=== PATIENT | female | born 1940 | race African-American/Black ===

== ENCOUNTER 2018-12-03 23:04 | Inpatient (IN) ==
[2018-12-04 01:29] LABS: Basophils % 0.3 % (0.0-0.8); Eosinophils % 0.2 % (0.00-10.9); Hematocrit 26.2 VOL% (35.7-47.0); Hemoglobin 8.4 GM/DL (12.0-16.0); Immature Granulocytes % 1.4 %; Immature Granulocytes Absolute 0.17 #; Lymphocytes # 0.9 10*3/uL (1.4-4.0); Lymphocytes % 7.2 % (21.3-54.2); Mean Corpuscular HGB Conc 32.1 GM/DL (32-36); Mean Corpuscular Volume 83.7 FL (87-102); Mean Platelet Volume 10.3 FL (9.6-12.0); Monocytes % 6.9 % (1.7-12.7); Platelet Count 276 T/CUMM (130-400); Red Blood Count 3.13 MC/CUMM (3.8-5.5); Red Cell Distribution Width 14.3 % (9.3-17.3); White Blood Count 12.3 T/CUMM (4-12)
[2018-12-04 01:53] LABS: Alanine Aminotransferase < 9 U/L (13-56); Albumin 2.9 G/DL (3.4-5.0); Alkaline Phosphatase 91 U/L (45-117); Aspartate Amino Transferase 17 U/L (0-37); Blood Urea Nitrogen 104 MG/DL (7-18); Calcium 6.3 MG/DL (8.5-10.1); Estimated Glom Filtration Rate 4 ML/MIN; Glucose 83 MG/DL (74-106); Osmolality,Calculated 282.5 MOS/KG (273-304); Total Protein 7.2 G/DL (6.4-8.3); Troponin I < 0.015 NG/ML (0.00-0.045)
[2018-12-04 01:58] LABS: ABG Base Excess -6.6 MMOL/L (-2.5-2.5); ABG Oxygen Saturation 99.2 % (95-100); ABG PCO2 30.3 MM HG (35-48); ABG PH 7.376 (7.35-7.45); ABG TCO2 16.6 MMOL/L (23-27)
[2018-12-04] MEDS ORDERED: SODIUM CHLORIDE 0.9% 500 ML IV ONE ×2 (02:03→09:28)
[2018-12-04] MEDS ORDERED: MAGNESIUM SULF RIDER 2 GM in PREMIX 1 EACH IV PRN (02:04)
[2018-12-04] MEDS ORDERED: MAGNESIUM SULF RIDER 4 GM in PREMIX 1 EACH IV PRN (02:04)
[2018-12-04] MEDS ORDERED: SODIUM CHLORIDE 0.9% 1,000 ML IV SCH (02:30)
[2018-12-04] MEDS ORDERED: HEPARIN 5,000 UNIT/1 ML VIAL SUBCUT SCH (03:00)
[2018-12-04 03:49] LABS: Apearance,Urine CLOUDY (Clear); Bilirubin,Urine Negative (Negative); Blood, Urine Moderate mg/dL (Negative); Glucose,Urine (UA) Negative (Negative); Hyaline Casts,Urine 7 /LPF (0-3); Ketones,Urine Negative (Negative); Nitrite,Urine Negative (Negative); Protein,Urine Negative; RBC,Urine 11 /HPF (0-4); Squamous Epithelial Cell,Urine Few /HPF (0-10); Urine Color Yellow (Yellow); Urine Specific Gravity 1.013 (1.001-1.035); Urine Urobilinogen < 2.0 EU/DL (0.2-1.0); WBC,Urine 25 /HPF (0-6)
[2018-12-04 05:18] LABS: Protein/Creatinine Ratio,Urine 0.7 RATIO
[2018-12-04] MEDS ORDERED: DOPamine 800 MG/250 ML PREMIX IV PRN (06:17)
[2018-12-04 08:59] LABS: Albumin 2.6 G/DL (3.4-5.0); Bilirubin,Total 0.6 MG/DL (0.2-1.0); Calcium 6.1 MG/DL (8.5-10.1); Osmolality,Calculated 290.9 MOS/KG (273-304); Risk Ratio 3.9; Thyroid Stimulating Hormone 0.264 uIU/ml (0.358-3.74); Total Protein 6.4 G/DL (6.4-8.3); VLDL CHOLESTEROL 22.6 MG/DL
[2018-12-04] MEDS ORDERED: FAMOTIDINE 20 MG/2 ML VIAL IV SCH (09:00)
[2018-12-04 09:51] LABS: Hemoglobin A1 (Alkaline) 97.7 % (96.5-98.5); Hemoglobin A2 (Alkaline) 2.3 % (1.5-3.5)
[2018-12-04 09:58] LABS: Folate 8.1 NG/ML (5.4-24.0); Vitamin B12 1055 PG/ML (211-911)
[2018-12-04] MEDS: CARBIDOPA/LEVODOPA 25-100 MG TABLET PO SCH ×3 (11:03→20:11)
[2018-12-04] MEDS ORDERED: ETOMIDATE 20 MG/10 ML VIAL IV ONE (12:16)
[2018-12-04] MEDS ORDERED: LIDOCAINE 100 MG/5 ML SYRINGE ONE (12:16)
[2018-12-04] MEDS: cefTRIAXone 1,000 MG in SYRINGE 1 EACH IV SCH (16:46)
[2018-12-04] MEDS ORDERED: PANTOPRAZOLE 40 MG TABLET PO SCH (18:30)
[2018-12-04] MEDS: SODIUM BICARB INJ 50 MEQ in SODIUM CHLORIDE 0.45% 1,000 ML IV SCH (19:05)
[2018-12-04] MEDS: DEXTROSE 5% 1,000 ML IV SCH (19:26)
[2018-12-04] MEDS: PANTOPRAZOLE 40 MG TABLET PO SCH (20:11)
[2018-12-05 04:18] LABS: Basophils % 0.1 % (0.0-0.8); Eosinophils # 0.1 10*3/uL (0.0-0.87); Eosinophils % 1.8 % (0.00-10.9); Hematocrit 23.4 VOL% (35.7-47.0); Hemoglobin 7.6 GM/DL (12.0-16.0); Immature Granulocytes % 0.9 %; Immature Granulocytes Absolute 0.07 #; Lymphocytes # 0.6 10*3/uL (1.4-4.0); Lymphocytes % 8.7 % (21.3-54.2); Mean Corpuscular HGB Conc 32.5 GM/DL (32-36); Mean Platelet Volume 10.5 FL (9.6-12.0); Monocytes % 7.7 % (1.7-12.7); Neutrophils % 80.8 % (38.7-73.9); Platelet Count 256 T/CUMM (130-400); Red Blood Count 2.82 MC/CUMM (3.8-5.5); Red Cell Distribution Width 14.1 % (9.3-17.3); White Blood Count 7.4 T/CUMM (4-12)
[2018-12-05 04:26] LABS: Calcium 6.3 MG/DL (8.5-10.1); Osmolality,Calculated 293.2 MOS/KG (273-304)
[2018-12-05] MEDS: SODIUM BICARB INJ 50 MEQ in SODIUM CHLORIDE 0.45% 1,000 ML IV SCH ×3 (05:40→22:05)
[2018-12-05 06:58] LABS: Basophils % 0.1 % (0.0-0.8); Eosinophils # 0.1 10*3/uL (0.0-0.87); Eosinophils % 1.8 % (0.00-10.9); Hematocrit 23.4 VOL% (35.7-47.0); Hemoglobin 7.6 GM/DL (12.0-16.0); Immature Granulocytes % 0.9 %; Immature Granulocytes Absolute 0.07 #; Lymphocytes # 0.6 10*3/uL (1.4-4.0); Lymphocytes % 8.7 % (21.3-54.2); Mean Corpuscular HGB Conc 32.5 GM/DL (32-36); Mean Platelet Volume 10.5 FL (9.6-12.0); Monocytes % 7.7 % (1.7-12.7); Neutrophils % 80.8 % (38.7-73.9); Platelet Count 256 T/CUMM (130-400); Red Blood Count 2.82 MC/CUMM (3.8-5.5); Red Cell Distribution Width 14.1 % (9.3-17.3); White Blood Count 7.4 T/CUMM (4-12)
[2018-12-05 07:58] LABS: Sedimentation Rate-Westergren 99 MM/HR (0-30)
[2018-12-05] MEDS: PANTOPRAZOLE 40 MG TABLET PO SCH ×2 (08:30→20:29)
[2018-12-05] MEDS: CARBIDOPA/LEVODOPA 25-100 MG TABLET PO SCH ×3 (08:30→20:29)
[2018-12-05] MEDS ORDERED: FUROSEMIDE 20 MG/2 ML VIAL IV PRN (08:32)
[2018-12-05] MEDS ORDERED: SODIUM CHLORIDE 0.9% 1,000 ML IV PRN (08:32)
[2018-12-05] MEDS: DEXTROSE 5% 1,000 ML IV SCH (16:28)
[2018-12-05] MEDS: cefTRIAXone 1,000 MG in SYRINGE 1 EACH IV SCH (17:02)
[2018-12-05] MEDS ORDERED: FUROSEMIDE 20 MG/2 ML VIAL IV ONE (18:50)
[2018-12-06 04:27] LABS: Basophils % 0.1 % (0.0-0.8); Eosinophils # 0.3 10*3/uL (0.0-0.87); Eosinophils % 3.4 % (0.00-10.9); Hematocrit 28.2 VOL% (35.7-47.0); Hemoglobin 9.2 GM/DL (12.0-16.0); Immature Granulocytes % 0.9 %; Immature Granulocytes Absolute 0.07 #; Lymphocytes # 0.7 10*3/uL (1.4-4.0); Lymphocytes % 8.4 % (21.3-54.2); Mean Corpuscular HGB Conc 32.6 GM/DL (32-36); Mean Corpuscular Volume 83.7 FL (87-102); Mean Platelet Volume 10.3 FL (9.6-12.0); Monocytes % 7.2 % (1.7-12.7); Platelet Count 228 T/CUMM (130-400); Red Blood Count 3.37 MC/CUMM (3.8-5.5); Red Cell Distribution Width 14.4 % (9.3-17.3); White Blood Count 7.9 T/CUMM (4-12)
[2018-12-06 04:47] LABS: Calcium 7.2 MG/DL (8.5-10.1); Osmolality,Calculated 302.3 MOS/KG (273-304)
[2018-12-06] MEDS: SODIUM BICARB INJ 50 MEQ in SODIUM CHLORIDE 0.45% 1,000 ML IV SCH ×2 (08:35→20:37)
[2018-12-06] MEDS ORDERED: POLYETHYLENE GLYCOL POWDER 17 GM PACK PO SCH (09:00)
[2018-12-06] MEDS: CARBIDOPA/LEVODOPA 25-100 MG TABLET PO SCH ×3 (09:35→20:33)
[2018-12-06] MEDS: PANTOPRAZOLE 40 MG TABLET PO SCH ×2 (09:35→20:34)
[2018-12-06] MEDS: ONDANSETRON 4 MG/2 ML VIAL IV PRN (12:46)
[2018-12-06] MEDS: DOCUSATE SODIUM 100 MG CAPSULE PO SCH ×2 (12:54→20:34)
[2018-12-06] MEDS: HEPARIN 5,000 UNIT/1 ML VIAL SUBCUT SCH (15:53)
[2018-12-06] MEDS: cefTRIAXone 1,000 MG in SYRINGE 1 EACH IV SCH (15:53)
[2018-12-06] MEDS: POLYETHYLENE GLYCOL POWDER 17 GM PACK PO SCH (20:33)
[2018-12-06] MEDS: LACTULOSE 20 GM/30 ML UDCUP PO SCH (20:33)
[2018-12-06] MEDS: CYPROHEPTADINE 4 MG TABLET PO SCH (20:33)
[2018-12-06] MEDS: levETIRAcetam 500 MG TABLET PO SCH (20:34)
[2018-12-07] MEDS: HEPARIN 5,000 UNIT/1 ML VIAL SUBCUT SCH ×4 (01:13→23:53)
[2018-12-07 05:31] LABS: Basophils % 0.1 % (0.0-0.8); Eosinophils # 0.3 10*3/uL (0.0-0.87); Eosinophils % 4.7 % (0.00-10.9); Hematocrit 27.9 VOL% (35.7-47.0); Hemoglobin 9.2 GM/DL (12.0-16.0); Immature Granulocytes % 1.2 %; Immature Granulocytes Absolute 0.08 #; Lymphocytes # 1.3 10*3/uL (1.4-4.0); Lymphocytes % 18.7 % (21.3-54.2); Mean Platelet Volume 9.9 FL (9.6-12.0); Monocytes % 7.3 % (1.7-12.7); Platelet Count 241 T/CUMM (130-400); Red Blood Count 3.36 MC/CUMM (3.8-5.5); Red Cell Distribution Width 14.5 % (9.3-17.3); White Blood Count 6.8 T/CUMM (4-12)
[2018-12-07 05:44] LABS: Calcium 7.4 MG/DL (8.5-10.1); Osmolality,Calculated 300.8 MOS/KG (273-304)
[2018-12-07] MEDS: SODIUM BICARB INJ 50 MEQ in SODIUM CHLORIDE 0.45% 1,000 ML IV SCH ×2 (08:21→17:12)
[2018-12-07] MEDS: LACTULOSE 20 GM/30 ML UDCUP PO SCH ×2 (09:28→21:12)
[2018-12-07] MEDS: POLYETHYLENE GLYCOL POWDER 17 GM PACK PO SCH ×2 (09:28→21:09)
[2018-12-07] MEDS: levETIRAcetam 500 MG TABLET PO SCH ×2 (09:32→21:24)
[2018-12-07] MEDS: DOCUSATE SODIUM 100 MG CAPSULE PO SCH ×2 (09:33→21:10)
[2018-12-07] MEDS: CARBIDOPA/LEVODOPA 25-100 MG TABLET PO SCH ×3 (09:33→21:12)
[2018-12-07] MEDS: PANTOPRAZOLE 40 MG TABLET PO SCH ×2 (09:33→21:10)
[2018-12-07] MEDS: CYPROHEPTADINE 4 MG TABLET PO SCH ×3 (09:35→21:10)
[2018-12-07] MEDS: carvediloL 3.125 MG TABLET PO SCH ×2 (12:10→21:10)
[2018-12-07] MEDS: cefTRIAXone 1,000 MG in SYRINGE 1 EACH IV SCH (14:37)
[2018-12-08] MEDS: SODIUM BICARB INJ 50 MEQ in SODIUM CHLORIDE 0.45% 1,000 ML IV SCH ×2 (03:58→14:34)
[2018-12-08 05:46] LABS: Basophils % 0.3 % (0.0-0.8); Eosinophils # 0.4 10*3/uL (0.0-0.87); Eosinophils % 5.4 % (0.00-10.9); Hemoglobin 7.9 GM/DL (12.0-16.0); Immature Granulocytes % 0.9 %; Immature Granulocytes Absolute 0.06 #; Lymphocytes # 1.2 10*3/uL (1.4-4.0); Lymphocytes % 17.6 % (21.3-54.2); Mean Corpuscular HGB Conc 31.6 GM/DL (32-36); Mean Corpuscular Volume 87.1 FL (87-102); Monocytes % 7.5 % (1.7-12.7); Neutrophils % 68.3 % (38.7-73.9); Platelet Count 216 T/CUMM (130-400); Red Blood Count 2.87 MC/CUMM (3.8-5.5); Red Cell Distribution Width 14.6 % (9.3-17.3); White Blood Count 6.5 T/CUMM (4-12)
[2018-12-08 06:06] LABS: Calcium 7.3 MG/DL (8.5-10.1); Osmolality,Calculated 293.7 MOS/KG (273-304)
[2018-12-08] MEDS: LACTULOSE 20 GM/30 ML UDCUP PO SCH ×2 (09:05→21:05)
[2018-12-08] MEDS: HEPARIN 5,000 UNIT/1 ML VIAL SUBCUT SCH ×2 (09:05→15:25)
[2018-12-08] MEDS: POLYETHYLENE GLYCOL POWDER 17 GM PACK PO SCH ×2 (09:05→21:10)
[2018-12-08] MEDS: levETIRAcetam 500 MG TABLET PO SCH ×2 (09:05→21:17)
[2018-12-08] MEDS: CARBIDOPA/LEVODOPA 25-100 MG TABLET PO SCH ×3 (09:05→21:10)
[2018-12-08] MEDS: CYPROHEPTADINE 4 MG TABLET PO SCH ×3 (09:06→21:10)
[2018-12-08] MEDS: PANTOPRAZOLE 40 MG TABLET PO SCH (09:06)
[2018-12-08] MEDS: DOCUSATE SODIUM 100 MG CAPSULE PO SCH ×2 (09:06→21:10)
[2018-12-08] MEDS: carvediloL 3.125 MG TABLET PO SCH ×2 (09:07→21:10)
[2018-12-08] MEDS ORDERED: POTASSIUM CHLORIDE 20 MEQ TABLET PO ONE (10:04)
[2018-12-08] MEDS: cefTRIAXone 1,000 MG in SYRINGE 1 EACH IV SCH (14:28)
[2018-12-08] MEDS ORDERED: SODIUM CHLORIDE 0.9% 1,000 ML IV PRN (15:00)
[2018-12-08] MEDS: ONDANSETRON 4 MG/2 ML VIAL IV PRN (21:17)
[2018-12-09] MEDS: PANTOPRAZOLE 40 MG TABLET PO SCH ×2 (00:26→09:21)
[2018-12-09] MEDS: HEPARIN 5,000 UNIT/1 ML VIAL SUBCUT SCH ×2 (00:26→09:20)
[2018-12-09 04:41] LABS: Basophils % 0.3 % (0.0-0.8); Eosinophils # 0.4 10*3/uL (0.0-0.87); Eosinophils % 4.6 % (0.00-10.9); Hematocrit 29.2 VOL% (35.7-47.0); Hemoglobin 9.2 GM/DL (12.0-16.0); Immature Granulocytes % 1.3 %; Lymphocytes # 1.2 10*3/uL (1.4-4.0); Mean Corpuscular HGB Conc 31.5 GM/DL (32-36); Mean Corpuscular Volume 88.2 FL (87-102); Mean Platelet Volume 9.7 FL (9.6-12.0); Monocytes % 7.1 % (1.7-12.7); Neutrophils % 71.7 % (38.7-73.9); Platelet Count 187 T/CUMM (130-400); Red Blood Count 3.31 MC/CUMM (3.8-5.5); Red Cell Distribution Width 14.6 % (9.3-17.3)
[2018-12-09 05:08] LABS: % Iron Saturation 91.7 % (18-50)
[2018-12-09 05:18] LABS: Calcium 7.5 MG/DL (8.5-10.1); Osmolality,Calculated 295.4 MOS/KG (273-304)
[2018-12-09] MEDS: DOCUSATE SODIUM 100 MG CAPSULE PO SCH (09:20)
[2018-12-09] MEDS: CARBIDOPA/LEVODOPA 25-100 MG TABLET PO SCH (09:20)
[2018-12-09] MEDS: LACTULOSE 20 GM/30 ML UDCUP PO SCH (09:20)
[2018-12-09] MEDS: CYPROHEPTADINE 4 MG TABLET PO SCH (09:21)
[2018-12-09] MEDS: carvediloL 3.125 MG TABLET PO SCH (09:21)
[2018-12-09] MEDS: POLYETHYLENE GLYCOL POWDER 17 GM PACK PO SCH (09:21)
[2018-12-09] MEDS: levETIRAcetam 500 MG TABLET PO SCH (09:28)
[2018-12-09] MEDS ORDERED: POTASSIUM CHLORIDE 20 MEQ TABLET PO ONE (11:02)
[2018-12-09 12:48] VITALS: BP 137/60
[2018-12-10 16:36] LABS: Soluble Transf Receptor (sTfR) 2.5 mg/L (1.8 - 4.6)
== END 2018-12-09 13:53 | disposition home health service (06) | DRG 682 ==
LOC: N.ICU 12-04 00:35 → SUATTDRO 12-04 00:35 → N.TELES 12-06 17:01
PROVIDERS: ADMIT Internal Medicine; ATTEND Hospitalist